=== PATIENT | female | born 1955 | race Hispanic/Latino ===

== ENCOUNTER 2024-05-20 21:43 | Emergency (ER) | payer OTHER, SELFPAY ==
[2024-05-20 21:45] VITALS: BP 159/89
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
[2024-05-20] MEDS: TYLENOL 1000 MG PO (23:55)
[2024-05-21 00:24] VITALS: BP 143/78
== END 2024-05-21 00:31 | disposition home or self-care (01) ==
LOC: EMR 21:43
PROVIDERS: EMERGENCY PHYSICIAN Emergency Medicine; FAMILY PHYSICIAN Family Medicine
DX: S09.90XA Unspecified injury of head, initial encounter (principal); M47.27 Other spondylosis with radiculopathy, lumbosacral region; M51.369 Other intervertebral disc degeneration, lumbar region without mention of lumbar back pain or lower extremity pain; W19.XXXA Unspecified fall, initial encounter; I10 Essential (primary) hypertension; E11.9 Type 2 diabetes mellitus without complications; K21.9 Gastro-esophageal reflux disease without esophagitis; Z79.899 Other long term (current) drug therapy
CPT/HCPCS: 99283; 72110; 73502

== ENCOUNTER 2024-09-10 20:10 | Emergency (ER) | payer OTHER, SELFPAY ==
[2024-09-10 20:13] VITALS: BMI 28.6
[2024-09-10 20:17] VITALS: BP 141/77
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
[2024-09-10 21:00] VITALS: BP 146/75
[2024-09-10 23:00] VITALS: BP 151/72
== END 2024-09-10 23:26 | disposition home or self-care (01) ==
LOC: EMR 20:10
PROVIDERS: EMERGENCY PHYSICIAN Emergency Medicine; FAMILY PHYSICIAN Physician Assistant
DX: S01.111A Laceration without foreign body of right eyelid and periocular area, initial encounter (principal); S80.01XA Contusion of right knee, initial encounter; W19.XXXA Unspecified fall, initial encounter; I10 Essential (primary) hypertension
CPT/HCPCS: 12011; 99284; 70450; 73564

== ENCOUNTER → 2024-10-08 09:53 | Outpatient (REF) | payer OTHER, SELFPAY | LOC: HWRCS 09:53 | PROVIDERS: ATTENDING PHYSICIAN Internal Medicine Cardiovascular Disease; FAMILY PHYSICIAN Family Medicine | DX: R06.02 Shortness of breath (principal) | CPT/HCPCS: 93306 ==

== ENCOUNTER → 2024-11-27 11:23 | Outpatient (REF) | payer OTHER, SELFPAY | LOC: HWRAD 11:23 | PROVIDERS: ATTENDING PHYSICIAN Specialist; FAMILY PHYSICIAN Physician Assistant | DX: R80.9 Proteinuria, unspecified (principal); I10 Essential (primary) hypertension; R31.29 Other microscopic hematuria | CPT/HCPCS: 76770 ==